=== PATIENT | male | born 1985 ===

== ENCOUNTER 2018-10-31 22:39 | Emergency (ER) | payer OTHER ==
[2018-10-31 23:34] VITALS: O2SAT 99
--- NOTE | 2018-11-01 00:38 | ED PDOC ---
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 Patient states he feels a "lump" there that is painful to touch. Denies fever, nausea/vomiting, chest pain, shortness of breath, palpitations, urinary symptoms Patient also reports rash to bilateral armpits and groin x 1 week. Denies pain, drainage, itching Past Medical History Reviewed: Historical Data, Nursing Documentation, Vital Signs Vital Signs: Last Vital Signs Temp 98.7 F 10/31/18 23:32 Pulse 94 H 10/31/18 23:32 Resp 18 10/31/18 23:32 BP 138/88 10/31/18 23:32 Pulse Ox 99 10/31/18 23:32 - Medical History PMH: Kidney Stones - Surgical History Surgical History: No Surg Hx - Family History Family History: States: No Known Family Hx - Home Medications Home Medications: Ambulatory Orders Medication Instructions Recorded Clotrimazole 1% Cream [Lotrimin 1%] 1 applic TP BID #1 tube 11/01/18 - Allergies Allergies/Adverse Reactions: Allergies Allergy/AdvReac Type Severity Reaction Status Date / Time shrimp AdvReac RASH Verified 11/01/18 00:36 Review of Systems ROS Statement: Except As Marked, All Systems Reviewed And Found Negative Gastrointestinal: Positive for: Abdominal Pain Skin: Positive for: Rash Physical Exam - Reviewed Nursing Documentation Reviewed: Yes Vital Signs Reviewed: Yes - Physical Exam Appears: Positive for: Well, Non-toxic, No Acute Distress Head Exam: Positive for: ATRAUMATIC, NORMAL INSPECTION, NORMOCEPHALIC Skin: Positive for: Rash (slightly raised erythematous patches noted to bialteral axilla and groin; no vesicles, draiange, tenderness) ENT: Positive for: Normal ENT Inspection Cardiovascular/Chest: Positive for: Regular Rate, Rhythm Respiratory: Positive for: Normal Breath Sounds Gastrointestinal/Abdominal: Positive for: Bowel Sounds, Soft, Tenderness (RLQ, + palpable subcutaneous mobile mass, tender to touch; no erythema, warmth to touch noted) Back: Positive for: Normal Inspection Extremity: Positive for: Normal ROM Neurological/Psych: Positive for: Awake, Alert, Oriented (x3) - Laboratory Results Result Diagrams: 11/01/18 00:53 11/01/18 00:53 - ECG O2 Sat by Pulse Oximetry: 99 - Progress ED Course And Treament: -cbc -cmp -urinalysis -CTabd/pelvis -IV toradol CT SCAN OF THE ABDOMEN AND PELVIS WITH CONTRAST. CLINICAL HISTORY: Painful lump in the right lower abdomen. TECHNIQUE: Multiple axial and coronal CT images were obtained through the abdomen and pelvis after administration of intravenous contrast material. COMMENTS: Uncomplicated diverticulosis of moderate amount of fecal residue in the large bowel. The liver is of uniform attenuation without mass or defect. There is no intra or extrahepatic biliary ductal dilatation. The spleen is normal. The gallbladder is within normal limits. The pancreas is of normal contour and attenuation characteristics. There is no evidence of adrenal mass. Both kidneys demonstrate prompt and equal nephrograms. The kidneys are normal in size, shape and configuration. There is no evidence of renal or ureteral mass. No renal or ureteral calculi are identified. There is no hydroureter or hydronephrosis. No evidence for appendicitis. There is no bowel wall thickening. No evidence for small or large bowel obstruction. There is no evidence of abdominal ascites or lymphadenopathy. There is no evidence of intrinsic or extrinsic bladder mass. There is no pelvic ascites or lymphadenopathy. Images of the lung bases show no evidence of pleural or parenchymal mass. There are no pleural effusions. The bony structures are free of lytic or blastic l esions. Bilateral fat containing inguinal hernias without incarceration. IMPRESSION: No evidence of acute abdominal or pelvic pathology PAtient educated on findings, discharged with rx Clotrimazole Advised Tylenol/Ibuprofen PRN pain Follow up PMD within 2-3 days Return precautions given Disposition - Clinical Impression Clinical Impression: Abdominal pain, Tinea - Patient ED Disposition Is Patient to be Admitted: No Counseled Patient/Family Regarding: Studies Performed, Diagnosis, Need For Followup, Rx Given - Disposition Referrals: [facility] [Outside] Disposition: Routine/Home Disposition Time: 03:09 Condition: IMPROVED Prescriptions: Clotrimazole 1% Cream [Lotrimin 1%] 1 applic TP BID #1 tube Instructions: Ringworm, Athlete's Foot, and Jock Itch, Acute Abdomen (Belly Pain) Print Language: MACEDONIAN
[2018-11-01 00:56] LABS: BASO # 0.1 K/uL (0.0-0.2); BASO % 0.7 % (0.0-2.0); EOS # 0.2 K/uL (0.0-0.7); EOS % 3.2 % (0.0-4.0); LYMPH # 2.5 K/uL (1.0-4.3); LYMPH % 33.2 % (20.0-40.0); MEAN CELL VOLUME 91.4 fl (80.0-94.0); MEAN CORPUSCULAR HEMOGLOBIN 31.7 pg (27.0-31.0); MEAN CORPUSCULAR HGB CONC 34.6 g/dL (33.0-37.0); MEAN PLATELET VOLUME 8.5 fl (7.2-11.7); MONO # 0.8 K/uL (0.0-0.8); MONO % 10.6 % (0.0-10.0); NEUT # 3.9 K/uL (1.8-7.0); NEUT % 52.3 % (50.0-75.0); NRBC % 0.1 % (0.0-0.0); RBC 4.74 Mil/uL (4.40-5.90); RED CELL DISTRIBUTION WIDTH 13.4 % (11.5-14.5); WHITE BLOOD COUNT 7.5 K/uL (4.8-10.8)
[2018-11-01] MEDS ORDERED: DiphenhydrAMINE 50 mg/ml Inj IV ONE (01:05)
[2018-11-01 01:06] LABS: ALB/GLOB RATIO 1.3 (1.0-2.1); ALBUMIN 4.6 g/dL (3.5-5.0); ALT/SGPT 61 U/L (21-72); AST/SGOT 47 U/L (17-59); BLOOD UREA NITROGEN 16 mg/dl (9-20); CALCIUM 9.6 mg/dL (8.4-10.2); GFR NON-AFRICAN AMERICAN > 60
[2018-11-01] MEDS ORDERED: Sodium Chloride 0.9% 50 ML IV ONE (01:11)
[2018-11-01] MEDS ORDERED: Iohexol 300 100 ML IJ ONE (01:11)
[2018-11-01] MEDS ORDERED: DiphenhydrAMINE 50 mg/ml Inj ONE (01:24)
[2018-11-01 03:52] VITALS: BP 129/81; PULSE 83; RESP 17; TEMP 98.5
--- NOTE | 2018-11-01 12:40 | CT ---
Date of service: 11/01/2018 PROCEDURE: CT abdomen pelvis HISTORY: Painful bump right lower abdomen COMPARISON: None. TECHNIQUE: Contiguous axial images of the abdomen and pelvis performed following intravenous injection of approximately 95 cc Omnipaque 300 contrast material. Reformats generated. Radiation dose: Total exam DLP = 687.49 mGy-cm. This CT exam was performed using one or more of the following dose reduction techniques: Automated exposure control, adjustment of the mA and/or kV according to patient size, and/or use of iterative reconstruction technique. FINDINGS: LOWER THORAX: Heart size within range of normal. No significant pericardial effusion. Small hiatal hernia. Mild passive/dependent type atelectasis both posterior lung bases. LIVER: Liver is enlarged measuring nearly 20 cm in CC dimension. Moderate-fairly significant diffuse fatty hepatic infiltration. No obvious hepatic mass collection or calcification. Portal and splenic veins opacified. GALLBLADDER AND BILE DUCTS: Unremarkable. PANCREAS: Unremarkable. No mass. No ductal dilatation. SPLEEN: Unremarkable. No splenomegaly. ADRENALS: There are no adrenal lesions. KIDNEYS AND URETERS: Unremarkable. No stone or hydronephrosis. BLADDER: Urinary bladder is physiologically distended. No evidence of intraluminal urinary bladder calculi. REPRODUCTIVE: Unremarkable. APPENDIX: Normal appendix. BOWEL: Evaluation of the bowel slightly limited due to the lack of oral contrast material. The stomach is incompletely distended with slight thick-walled appearance. Visualized loops of small bowel exhibit normal contour and caliber. No evidence of acute mechanical small bowel obstruction. Stool and air seen throughout the large bowel. There are a few diverticula seen scattered along the descending and proximal sigmoid colon. PERITONEUM: Unremarkable. No fluid collection. No free air.Small fat containing umbilical hernia. There are also small bilateral fat containing inguinal hernias. LYMPH NODES: The there are a few small nonspecific mesenteric lymph nodes; rule out mesenteric adenitis. VASCULATURE: Unremarkable. No aortic aneurysm. No aortic atherosclerotic calcification or mural plaque present. BONES: Minor multilevel degenerative spondylosis of the thoracic and lumbar spine. OTHER FINDINGS: None. IMPRESSION: Hepatomegaly with moderate to fairly significant fatty hepatic infiltration. Diverticulosis without radiographic evidence of acute diverticulitis. Scattered mesenteric lymph nodes; rule out mesenteric adenitis. Small fat containing umbilical hernia and bilateral fat containing inguinal hernias.
== END 2018-11-01 03:29 | disposition home or self-care (01) ==
LOC: H.ER 22:39
DX: R10.30 Lower abdominal pain, unspecified (principal); B35.0 Tinea barbae and tinea capitis; K40.20 Bilateral inguinal hernia, without obstruction or gangrene, not specified as recurrent
CPT/HCPCS: 74177; 80053; 85025; 99284; J1200; J1885; Q9967